=== PATIENT | female | born 1985 | race Caucasian/White ===

== ENCOUNTER 2016-10-22 18:09 | Emergency (ER) | payer OTHER ==
[~2016-10-22] VITALS: Ht 162.6 cm; Wt 89.5 kg
[~2016-10-22 18:09] MED LIST: ACET500C5 PO; CEPH-443 PO; DOXY100T20 PO; HYDR-3498 PO; IBUP-1542 PO; PRED20TA PO
[2016-10-22 18:55] VITALS: Ht 162.6 cm; Wt 89.5 kg
[2016-10-22] MEDS ORDERED: FAMOTIDINE 20 MG INJ IV STA (20:24)
[2016-10-22] MEDS ORDERED: LIDOCAINE/MYLANTA 40 ML BTL PO STA (20:24)
[2016-10-22] MEDS ORDERED: BELLADONNA/PHENOBARBITAL TAB PO STA (20:24)
[2016-10-22 20:48] LABS: BASOPHIL # 0.1 10^3/ul (0.0-0.1); BASOPHILS % 0.5 % (0.0-2.0); EOSINOPHILS # 0.3 10^3/ul (0.0-0.5); HEMATOCRIT 41.2 % (37.0-47.0); HEMOGLOBIN 14.4 g/dl (12.0-16.0); LYMPHOCYTES % 26.7 % (15.0-51.0); MEAN CORPUSCULAR HEMOGLOBIN 30.3 pg (29.0-33.0); MEAN CORPUSCULAR VOLUME 86.6 fl (82.0-101.0); MEAN PLATELET VOLUME 10.3 fl (7.4-10.4); MONOCYTE # 0.5 10^3/ul (0.3-0.9); MONOCYTES % 4.6 % (0.0-11.0); NEUTROPHIL # 7.3 10^3/ul (1.6-7.5); NEUTROPHILS % 65.2 % (39.0-77.0); PLATELET COUNT 209 10^3/UL (140-440); RED BLOOD COUNT 4.76 10^6/ul (4.20-5.40); RED CELL DISTRIBUTION WIDTH 12.5 % (11.5-14.5); UNCORRECTED WBC 11.2 10^3/ul (4.8-10.8); WHITE BLOOD COUNT 11.2 10^3/ul (4.8-10.8)
--- NOTE | 2016-10-22 20:49 | ERD ---
ER Documentation Chief Complaint Date/Time DATE: 10/22/16 TIME: 20:45 Chief Complaint periumbilical pain x 3 days, dizzy today HPI This is a 31-year-old female presents to the ER with periumbilical pain that started 3 days ago. Patient states that pain is described as burning pain has been intermittent. Patient tried Tylenol and it helps temporarily. She denies any nausea vomiting or diarrhea. Patient's last normal menstrual period was in February, however they took out her IUD and since then she has not had a menstrual period. Patient denies any urinary frequency or dysuria. She admits to chills however denies fevers. In regards to patient's dizziness patient had one episode of dizziness today. Dizziness is described as a spinning sensation that quickly resolved. She denies any head trauma or loss of consciousness. She denies any chest pain shortness of breath. ROS 12 point review of systems was done, all negative except per HPI. Medications Home Meds Active Scripts Hydrocodone/Acetaminophen ([place] 5-325 Tablet) 1 Each Tablet, 1 TAB PO Q6H Y for PAIN, #20 TAB Prov:LILLIAM WALTON 10/22/16 Famotidine* (Pepcid*) 20 Mg Tablet, 20 MG PO BID for 7 Days, TAB Prov:LILLIAM WALTON 10/22/16 Acetaminophen* (Tylophen*) 500 Mg Capsule, 1 CAP PO Q6H Y for PAIN AND OR ELEVATED TEMP, #14 CAP Prov:DUNG JUAREZ MD 02/05/16 Hydrocodone Bit-Acetaminophen* ([place]*) 5-325 Mg Tab, 1 TAB PO Q6 Y for PAIN, # 7 TAB Prov:TIKA HEREDIA 05/25/15 Doxycycline Hyclate* (Doxycycline Hyclate*) 100 Mg Tablet.dr, 100 MG PO BID for 14 Days, TAB Prov:TIKA HEREDIA 05/25/15 Prednisone* (Prednisone*) 20 Mg Tab, 40 MG PO DAILY for 4 Days, TAB Prov:DUNG JUAREZ MD 04/11/15 Ibuprofen* (Motrin*) 600 Mg Tab, 600 MG PO Q6, #14 TAB Prov:DUNG JUAREZ MD 04/11/15 Cephalexin* (Keflex*) 500 Mg Capsule, 500 MG PO QID for 7 Days, CAP Prov:DUNG JUAREZ MD 04/11/15 Allergies Allergies: Coded Allergies: No Known Drug Allergy (Verified Allergy, Unknown, 12/26/14) PMhx/Soc History of Surgery: Yes (Cholecystectomy;Left Tubal cyst removal ) Anesthesia Reaction: No Hx Neurological Disorder: No Hx Respiratory Disorders: No Hx Cardiac Disorders: No Hx Psychiatric Problems: No Hx Miscellaneous Medical Probl: No (iud removal 03/06/16) Hx Alcohol Use: No Hx Substance Use: No Hx Tobacco Use: No Smoking Status: Never smoker Physical Exam Vitals Vital Signs Date Time Temp Pulse Resp B/P Pulse Ox O2 Delivery O2 Flow Rate FiO2 10/22/16 18:55 98.3 79 20 132/63 99 Physical Exam GENERAL: The patient is well developed and appropriate for usual state of health , in no apparent distress. HEENT: Atraumatic. CHEST: Clear to auscultation bilaterally. There are no rales, wheezes or rhonchi. HEART: Regular rate and rhythm. No murmurs, clicks, rubs or gallops. ABDOMEN: + epigastric pain. Soft, nontender and nondistended. Good bowel sounds. No rebound or guarding. No gross peritonitis. No gross organomegaly or masses. No Schultz sign or McBurney point tenderness. BACK: No midline or flank tenderness. NEURO: Alert and oriented. SKIN: The skin is warm and dry. Result Diagram: 10/22/16203810/22/162038 Results 24 hrs Laboratory Tests Test 10/22/16 20:30 10/22/16 20:39 Urine Bacteria MODERATE Urine Bilirubin NEGATIVE Urine Clarity CLEAR Urine Color LT. YELLOW Urine Glucose NEGATIVE% Urine Hemoglobin NEGATIVE Urine Ketones NEGATIVE Urine Leukocyte Esterase TRACE Urine Microscopic RBC NONE SEEN/HPF Urine Microscopic WBC 2-5/HPF Urine Nitrite NEGATIVE Urine Specific [place] 1.015 Urine Squamous Epithelial Cells MODERATE Urine Total Protein NEGATIVE Urine Urobilinogen 0.2 E.U./dL Urine pH 7.5 Alanine Aminotransferase (ALT/SGPT) 68IU/L Albumin 4.3g/dl Albumin/Globulin Ratio 1.30 Alkaline Phosphatase 79IU/L Anion Gap 19 Aspartate Amino Transf (AST/SGOT) 33IU/L Basophils # 0.110^3/ul Basophils % 0.5% Blood Urea Nitrogen 13mg/dl Calcium Level 9.2mg/dl Carbon Dioxide Level 28mmol/L Chloride Level 101mmol/L Creatinine 0.69mg/dl Direct Bilirubin 0.00mg/dl Eosinophils # 0.310^3/ul Eosinophils % 3.0% Globulin 3.30g/dl Glucose Level 99mg/dl Hematocrit 41.2% Hemoglobin 14.4g/dl Indirect Bilirubin 0.0mg/dl Lipase 109U/L Lymphocytes # 3.010^3/ul Lymphocytes % 26.7% Mean Corpuscular Hemoglobin 30.3pg Mean Corpuscular Hemoglobin Concent 35.0g/dl Mean Corpuscular Volume 86.6fl Mean Platelet Volume 10.3fl Monocytes # 0.510^3/ul Monocytes % 4.6% Neutrophils # 7.310^3/ul Neutrophils % 65.2% Nucleated Red Blood Cells # 0.010^3/ul Nucleated Red Blood Cells % 0.0/100WBC Platelet Count 90883^3/UL Potassium Level 3.8mmol/L Red Blood Count 4.7610^6/ul Red Cell Distribution Width 12.5% Sodium Level 144mmol/L Total Bilirubin 0.0mg/dl Total Protein 7.6g/dl White Blood Count 11.210^3/ul Current Medications Medications (Trade) Dose Ordered Sig/Mariann Route PRN Reason Start Time Stop Time Status Last Admin Dose Admin Famotidine (Pepcid Iv) 20 mg ONCE STAT IV 10/22/16 20:24 10/22/16 20:26 DC 10/22/16 20:36 Miscellaneous Medication (Gi Cocktail (2)) 40 ml ONCE STAT PO 10/22/16 20:24 10/22/16 20:26 DC 10/22/16 20:34 Belladonna/ Phenobarbital () 2 tab ONCE STAT PO 10/22/16 20:24 10/22/16 20:26 DC 10/22/16 20:33 Procedures/MDM Differential diagnosis includes but is not limited to; indigestion, GERD, constipation, appendicitis, diverticulitis, peptic ulcer disease, AAA. This is a 31-year-old female presents to the ER with periumbilical pain that started 3 days ago. At this time patient's abdominal exam is completely benign, she is afebrile and well-appearing. I doubt acute abdomen. Diagnostic studies were all normal. She felt significantly better with medications given in the ER. Patient was sent home with famotidine and with [place]. Patient is to follow-up with her primary care doctor within 1-2 days or return to ER sooner if symptoms worsen. My medical decision making was shared with the patient she understands and agrees with plan Departure Diagnosis: Primary Impression: Abdominal pain Condition: Stable LILLIAM AWLTON Oct 22, 2016 20:49
[2016-10-22 20:52] LABS: ADD UMIC YES; URINE BILIRUBIN (Dip) NEGATIVE (NEGATIVE); URINE BLOOD (Dip) NEGATIVE (NEGATIVE); URINE COLOR LT. YELLOW (YELLOW); URINE GLUCOSE (Dip) NEGATIVE (NEGATIVE); URINE KETONES (Dip) NEGATIVE (NEGATIVE); URINE LEUKOCYTE ESTERASE (Dip) TRACE (NEGATIVE); URINE NITRITE (Dip) NEGATIVE (NEGATIVE); URINE TOTAL PROTEIN (Dip) NEGATIVE (NEGATIVE); URINE UROBILINOGEN (Dip) 0.2 E.U./dL (0.1-1.0)
[2016-10-22 20:55] LABS: ALBUMIN 4.3 g/dl (3.3-4.9); CONDITION 1
[2016-10-22 20:56] LABS: POTASSIUM 3.8 mmol/L (3.5-5.1)
[2016-10-22 20:58] LABS: ALBUMIN/GLOBULIN RATIO 1.3; CREATININE 0.69 mg/dl (0.44-1.00); TOTAL PROTEIN 7.6 g/dl (6.1-8.1)
[2016-10-22 20:59] LABS: CALCIUM 9.2 mg/dl (8.4-10.2)
[2016-10-22 21:11] LABS: SQUAMOUS EPITHELIAL CELL,UR MODERATE; URINE RBCS NONE SEEN /HPF (0)
[2016-10-22 21:12] LABS: BACTERIA,URINE MODERATE
--- NOTE | 2016-10-22 22:08 | RADRPT ---
PROCEDURE: CT Abdomen and Pelvis without contrast CLINICAL INDICATION: Abdominal pain, periumbilical. History of cholecystectomy TECHNIQUE: Transaxial images were obtained through the abdomen and pelvis on a multi-slice scanner without the intravenous contrast administration. No oral contrast had previously been given. Sagit chloe and coronal re-formations were subsequently reconstructed. One or more of the following dose reduction techniques were used: - Automated exposure control. - Adjustment of the mA and/or kV according to patient size. - Use of iterative reconstruction technique. Radiation dose: CTDIvol = 18.56 mGy; DLP = 1055.75 mGy-cm. COMPARISON: Previous CT with contrast and 05/25/2015 FINDINGS: Lung bases: The visualized lung bases appear unremarkable. Liver: Normal in size and in attenuation. There is no focal lesion. Gallbladder: Surgical anna are seen in the gallbladder fossa. Bile ducts: The intra and extrahepatic bile ducts are normal in caliber. Pancreas: Appears normal with no mass or inflammation evident. Spleen: Normal in size with no focal lesion. Adrenals: Normal with no mass identified. Kidneys, ureters and bladder: The kidneys are normal in size and there is no mass, pathological calc ification, or hydronephrosis evident. There is no perinephric stranding. The ureters are normal in c aliber and no ureteroliths are identified. The bladder appears unremarkable. Reproductive organs: The uterus deviates slightly to the left of midline. A 1.[address] is evident. Stomach and bowel: The bowel appears unremarkable with no evidence of bowel obstruction or inflammat ion. The stomach appears unremarkable. Appendix: A normal-appearing vermiform appendix is evident. Peritoneum: No free intraperitoneal fluid or air is identified. Aorta: Normal in caliber with no aneurysmal dilatation. IVC: Unremarkable. Lymph nodes: No pathologically enlarged nodes are identified. Osseous structures: The osseous elements appear intact. IMPRESSION: 1. Again there is evidence of a previous cholecystectomy. There is no bile duct dilatation and the pancreas appears unremarkable. 2. There is no evidence of bowel obstruction or inflammation and a normal-appearing vermiform appen joaquín is again evident. 3. No evidence of urinary outflow obstruction or ureterolithiasis. 4. The IUD is no longer seen within the uterus and there is a 1.5 cm right adnexal cyst evident. 5. Otherwise, stable and unremarkable CT scan of the abdomen and pelvis without contrast. Claudia Elias Physician Date Time Electronically viewed and signed by Claudia Elias Physician on 10/22/2016 22:08 /
[2016-10-22] MEDS ORDERED: FAMO-18 PO (22:16)
[2016-10-22] MEDS ORDERED: HYDR-906 PO (22:16)
[2016-10-22 22:38] VITALS: BP 123/64; PULSE 82; RESP 16; TEMP 98.6
== END 2016-10-22 22:39 | disposition home or self-care (01) ==
LOC: FTE 18:09
DX: R10.13 Epigastric pain (principal)
CPT/HCPCS: 36415; 74176; 80053; 81001; 83690; 85025; 96374; Z7502; Z7610; 81003

== ENCOUNTER 2017-01-25 18:13 | Emergency (ER) | payer OTHER ==
[~2017-01-25] VITALS: Ht 157.5 cm; Wt 86.3 kg
[~2017-01-25 18:13] MED LIST changes: +FAMO-18 PO; +HYDR-906 PO
[2017-01-25 18:57] VITALS: Ht 157.5 cm; Wt 86.3 kg
[2017-01-25] MEDS ORDERED: ONDANSETRON (ODT) 4 MG TAB ODT STA (21:37)
[2017-01-25 21:48] LABS: URINE BLOOD (Dip) POC Trace-intact (NEGATIVE)
[2017-01-25] MEDS ORDERED: ACET/BUTAL/CAFF TAB PO ONE (22:00)
[2017-01-25] MEDS ORDERED: METOCLOPRAMIDE 10 MG INJ IV ONE (23:00)
[2017-01-25] MEDS ORDERED: SOD CHLORIDE 0.9% 1,000 ML IV ONE (23:00)
[2017-01-25] MEDS ORDERED: DIPHENHYDRAMINE 50 MG INJ IV ONE (23:00)
[2017-01-25] MEDS ORDERED: FIORICET PO (23:23)
--- NOTE | 2017-01-26 00:09 | ERD ---
ER Documentation Chief Complaint Date/Time DATE: 01/26/17 TIME: 00:06 Chief Complaint BROUSSARD OFF AND ON X1 WEEK HPI 31-year-old female patient with a past medical history of recurrent headaches presents to the ED complaining of the same headache that she has had in the last few years. States that she has some photophobia but denies any blurred vision or diplopia or vision loss. States that she has been taking Ibuprofen and Tylenol without relief of her symptoms. Denies any fever, chills, dizziness , numbness and tingling. Patient states that she has followed up with a neurologist 1 year ago and obtain an MRI which was negative for any acute findings. Patient has also had [address] scans with any acute findings. Denies any nausea, vomiting, weakness, chest pain, shortness of breath. ROS All systems reviewed and are negative except as per history of present illness. Medications Home Meds Active Scripts Acetamin/Butalbital/Caffeine* (Fioricet*) [id number] Tab, 1 TAB PO Q6H Y for PAIN, #30 TAB Prov:AYAH HERNANDEZ PA-C 01/25/17 Hydrocodone/Acetaminophen ([place] 5-325 Tablet) 1 Each Tablet, 1 TAB PO Q6H Y for PAIN, #20 TAB Prov:LILLIAM WALTON 10/22/16 Famotidine* (Pepcid*) 20 Mg Tablet, 20 MG PO BID for 7 Days, TAB Prov:LILLIAM WALTON 10/22/16 Acetaminophen* (Tylophen*) 500 Mg Capsule, 1 CAP PO Q6H Y for PAIN AND OR ELEVATED TEMP, #14 CAP Prov:DUNG JUAREZ MD 02/05/16 Hydrocodone Bit-Acetaminophen* ([place]*) 5-325 Mg Tab, 1 TAB PO Q6 Y for PAIN, # 7 TAB Prov:TIKA HEREDIA 05/25/15 Doxycycline Hyclate* (Doxycycline Hyclate*) 100 Mg Tablet.dr, 100 MG PO BID for 14 Days, TAB Prov:TIKA HEREDIA 05/25/15 Prednisone* (Prednisone*) 20 Mg Tab, 40 MG PO DAILY for 4 Days, TAB Prov:DUNG JUAREZ MD 04/11/15 Ibuprofen* (Motrin*) 600 Mg Tab, 600 MG PO Q6, #14 TAB Prov:DUNG JUAREZ MD 04/11/15 Cephalexin* (Keflex*) 500 Mg Capsule, 500 MG PO QID for 7 Days, CAP Prov:DUNG JUAREZ MD 04/11/15 Allergies Allergies: Coded Allergies: No Known Drug Allergy (Verified Allergy, Unknown, 12/26/14) PMhx/Soc History of Surgery: Yes (Cholecystectomy;Left Tubal cyst removal ) Anesthesia Reaction: No Hx Neurological Disorder: No Hx Respiratory Disorders: No Hx Cardiac Disorders: No Hx Psychiatric Problems: No Hx Miscellaneous Medical Probl: No (iud removal 03/06/16) Hx Alcohol Use: No Hx Substance Use: No Hx Tobacco Use: No Smoking Status: Never smoker Physical Exam Vitals Vital Signs Date Time Temp Pulse Resp B/P Pulse Ox O2 Delivery O2 Flow Rate FiO2 01/25/17 18:57 98.3 70 20 119/76 99 Physical Exam Const: [id number], well-nourished. In no acute distress. Head: Atraumatic, normocephalic Eyes: Normal Conjunctiva without injection. No purulent discharge. PERRLA. EOMI ENT: Normal external ear. Ear canal without erythema. Tympanic membrane pearly girard without effusion or bulging. Nasal canal clear with normal turbinates. Moist oropharynx without tonsillar exudates. Non-erythematous pharynx. Uvula midline. No drooling. No trismus. Neck: No cervical midline tenderness. Full range of motion. No meningismus. No cervical lymphadenopathy. No JVD. Resp: Clear to auscultation bilaterally. No wheezing, rhonchi, rales, or crackles. No accessory muscle use. No retractions. Cardio: Regular rate and rhythm. No murmurs, rubs or gallops. Skin: Normal skin turgor. No petechiae or rashes Back: No midline tenderness. No CVA tenderness. Ext: No cyanosis, or edema. Distal pulses intact bilaterally. Neur: Awake and alert. Normal gait. Normal coordination. Cranial Nerves II- VII intact. Normal finger to nose. Muscle strength 5/5. Sensation intact. Psych: Normal Mood and Affect Results 24 hrs Laboratory Tests Test 01/25/17 21:49 Bedside Urine pH (LAB) 6.0 Bedside Urine Protein (LAB) Negative Bedside Urine Glucose (UA) Negative Bedside Urine Ketones (LAB) Negative Bedside Urine Blood Trace-intact Bedside Urine Nitrite (LAB) Negative Bedside Urine Leukocyte Esterase (L Trace Current Medications Medications (Trade) Dose Ordered Sig/Mariann Route PRN Reason Start Time Stop Time Status Last Admin Dose Admin Acetaminophen/ Butalbital/ Caffeine (Fioricet) 1 tab ONCE ONCE PO 01/25/17 22:00 01/25/17 22:01 DC 01/25/17 22:02 Ondansetron HCl (Zofran Odt) 4 mg ONCE STAT ODT 01/25/17 21:37 01/25/17 21:39 DC 01/25/17 21:54 Metoclopramide HCl (Reglan) 10 mg ONCE ONCE IV 01/25/17 23:00 01/25/17 23:01 DC 01/25/17 22:51 Diphenhydramine HCl 25 mg 25 mg ONCE ONCE IV 01/25/17 23:00 01/25/17 23:01 DC 01/25/17 22:51 Sodium Chloride (NS) 1,000 ml @ 1,000 mls/hr Q1H ONCE IV 01/25/17 23:00 01/25/17 23:59 DC 01/25/17 22:51 Procedures/MDM This is a 31-year-old female patient with a past medical history of headaches presents to the ED complaining of the same headache that is not resolved with ibuprofen and Tylenol. Patient is afebrile and nontoxic-appearing. Negative Kernig's and persistently sign. Low suspicion for meningitis. Since patient's pain is the same, she was treated for her pain. Patient is neurologically intact. Patient was treated with Fioricet and Zofran with slight improvement of her symptoms. Therefore patient was given 1 L of normal saline, IV Reglan and IV Benadryl with relief of her pain. Patient symptoms could likely be due to tension headache versus migraine. There is low suspicion for intracranial bleed, cluster headache, malignancy, subarachnoid hemorrhage, meningitis, TIA, stroke, seizures, epidural hematoma, subdural hematoma, brain aneurysms, carotid dissection or other emergent conditions. Discharge medications: Fioricet Follow up with primary care physician in 1-2 days. Instructed patient to return to the ED sooner for any worsening symptoms. Patient's questions were answered. Patient understood and agreed with discharge plan. Patient discharged stable. Departure Diagnosis: Primary Impression: Headache Headache type: unspecified Headache chronicity pattern: unspecified pattern Intractability: not intractable Qualified Code: R51 - Nonintractable headache, unspecified chronicity pattern, unspecified headache type Condition: Stable Patient Instructions: Headache, Unspecified Referrals: FRANC VELEZ (PCP) TIFFANY KAPADIA MD, IRA CHUGH,GERMAINE BRISENO,LASHELL FAN,KATIA LOPEZ,GRACE FERRER,CASEY CASTANEDA,KIMBERLY HAJI,CHIKI JOSHUA,ELMO Ibarra MD [facility] YOU HAVE RECEIVED A MEDICAL SCREENING EXAM AND THE RESULTS INDICATE THAT YOU DO NOT HAVE A CONDITION THAT REQUIRES URGENT TREATMENT IN THE EMERGENCY DEPARTMENT. FURTHER EVALUATION AND TREATMENT OF YOUR CONDITION CAN WAIT UNTIL YOU ARE SEEN IN YOUR DOCTORS OFFICE WITHIN THE NEXT 1-2 DAYS. IT IS YOUR RESPONSIBILITY TO MAKE AN APPOINTMENT FOR FOLOW-UP CARE. IF YOU HAVE A PRIMARY DOCTOR --you should call your primary doctor and schedule an appointment IF YOU DO NOT HAVE A PRIMARY DOCTOR YOU CAN CALL OUR PHYSICIAN REFERRAL HOTLINE AT IF YOU CAN NOT AFFORD TO SEE A PHYSICIAN YOU CAN CHOSE FROM THE FOLLOWING [facility] [address] [facility]. [facility] [address] [facility]. [facility] [address] [facility] [address] [facility] [address] [facility]. [facility] [address] [facility] YOU HAVE RECEIVED A MEDICAL SCREENING EXAM AND THE RESULTS INDICATE THAT YOU DO NOT HAVE A CONDITION THAT REQUIRES URGENT TREATMENT IN THE EMERGENCY DEPARTMENT. FURTHER EVALUATION AND TREATMENT OF YOUR CONDITION CAN WAIT UNTIL YOU ARE SEEN IN YOUR DOCTORS OFFICE WITHIN THE NEXT 1-2 DAYS. IT IS YOUR RESPONSIBILITY TO MAKE AN APPOINTMENT FOR FOLOW-UP CARE. IF YOU HAVE A PRIMARY DOCTOR --you should call your primary doctor and schedule and appointment IF YOU DO NOT HAVE A PRIMARY DOCTOR YOU CAN CALL OUR PHYSICIAN REFERRAL HOTLINE AT . IF YOU CAN NOT AFFORD TO SEE A PHYSICIAN YOU CAN CHOSE FROM THE FOLLOWING [facility] INSTITUTIONS: [facility] [address] [place] [address] [facility] [address] [place] [address] [facility] [address] [place] [address] [facility] URGENT CARE/SPECIALTIES Additional Instructions: Call your primary care doctor TOMORROW for an appointment during the next 1-2 days for a referral to a neurologist.See the doctor sooner or return here if your condition worsens before your appointment time. You have been given a medicine which may cause drowsiness.DO NOT DRIVE OR OPERATE DANGEROUS MACHINERY while taking this medicine! AYAH HERNANDEZ PA-C January 26, 2017 00:09 AYAH HERNANDEZ PA-C January 26, 2017 00:09
[2017-01-26 00:20] VITALS: BP 126/80; PULSE 87; RESP 20; TEMP 97.3
== END 2017-01-26 00:27 | disposition home or self-care (01) ==
LOC: FTE 18:13
DX: R51 Headache (principal)
CPT/HCPCS: 81003; J1200; J2765; J7030; Z7610; 96374; 96375

== ENCOUNTER 2017-04-22 17:21 | Emergency (ER) | payer OTHER ==
[~2017-04-22] VITALS: Ht 160 cm; Wt 85.0 kg
[~2017-04-22 17:21] MED LIST changes: -FAMO-18 PO; +FAMO-96 PO; +FIORICET PO
[2017-04-22 17:23] VITALS: Ht 160 cm; Wt 85.0 kg
[2017-04-22] MEDS ORDERED: ONDANSETRON (ODT) 4 MG TAB ODT STA (18:51)
[2017-04-22] MEDS ORDERED: ACET/BUTAL/CAFF TAB PO ONE (19:00)
[2017-04-22] MEDS ORDERED: ONDA4TAB14 PO (21:13)
[2017-04-22] MEDS ORDERED: FIORICET PO (21:13)
[2017-04-22 21:19] VITALS: BP 120/78; PULSE 70; RESP 18
--- NOTE | 2017-04-22 22:29 | ERD ---
ER Documentation Chief Complaint Date/Time DATE: 04/22/17 TIME: 22:26 Chief Complaint HEADACHE WITH VOMITING HPI 32-year-old female patient with no significant past medical history presents the ED complaining of a headache that started with a few episodes of nonbilious nonbloody vomiting. Reports that her last menses was 1 week ago. Describes the pain as a pressure sensation. States that she mainly feels in the temporal region and posterior head region. Denies any head or neck injuries. Denies any seizures, facial pain, diplopia, photophobia, phonophobia, vision loss, blurred vision. Reports that this feels like the same headache that she experienced when she was seen here previously in January. ROS All systems reviewed and are negative except as per history of present illness. Medications Home Meds Active Scripts Ondansetron (Ondansetron Odt) 4 Mg Tab.rapdis, 4 MG PO Q6H Y for NAUSEA AND/OR VOMITING, #10 TAB Prov:AYAH HERNANDEZ PA-C 04/22/17 Acetamin/Butalbital/Caffeine* (Fioricet*) [id number] Tab, 1 TAB PO Q6H Y for PAIN, #30 TAB Prov:AYAH HERNANDEZ PA-C 04/22/17 Acetamin/Butalbital/Caffeine* (Fioricet*) [id number] Tab, 1 TAB PO Q6H Y for PAIN, #30 TAB Prov:AYAH HERNANDEZ PA-C 01/25/17 Hydrocodone/Acetaminophen ([place] 5-325 Tablet) 1 Each Tablet, 1 TAB PO Q6H Y for PAIN, #20 TAB Prov:LILLIAM WALTON 10/22/16 Famotidine* (Pepcid*) 20 Mg Tablet, 20 MG PO BID for 7 Days, TAB Prov:LILLIAM WALTON C 10/22/16 Acetaminophen* (Tylophen*) 500 Mg Capsule, 1 CAP PO Q6H Y for PAIN AND OR ELEVATED TEMP, #14 CAP Prov:DUNG JUAREZ MD 02/05/16 Hydrocodone Bit-Acetaminophen* ([place]*) 5-325 Mg Tab, 1 TAB PO Q6 Y for PAIN, # 7 TAB Prov:TIKA HEREDIA 05/25/15 Doxycycline Hyclate* (Doxycycline Hyclate*) 100 Mg Tablet.dr, 100 MG PO BID for 14 Days, TAB Prov:YANTIKA M. 05/25/15 Prednisone* (Prednisone*) 20 Mg Tab, 40 MG PO DAILY for 4 Days, TAB Prov:DUNG JUAREZ MD 04/11/15 Ibuprofen* (Motrin*) 600 Mg Tab, 600 MG PO Q6, #14 TAB Prov:DUNG JUAREZ MD 04/11/15 Cephalexin* (Keflex*) 500 Mg Capsule, 500 MG PO QID for 7 Days, CAP Prov:DUNG JUAREZ MD 04/11/15 Allergies Allergies: Coded Allergies: No Known Drug Allergy (Verified Allergy, Unknown, 12/26/14) PMhx/Soc History of Surgery: Yes (Cholecystectomy;Left Tubal cyst removal ) Anesthesia Reaction: No Hx Neurological Disorder: No Hx Respiratory Disorders: No Hx Cardiac Disorders: No Hx Psychiatric Problems: No Hx Miscellaneous Medical Probl: No (iud removal 03/06/16) Hx Alcohol Use: No Hx Substance Use: No Hx Tobacco Use: No Smoking Status: Never smoker Physical Exam Vitals Vital Signs Date Time Temp Pulse Resp B/P Pulse Ox O2 Delivery O2 Flow Rate FiO2 04/22/17 21:19 70 18 120/78 99 Room Air 04/22/17 17:23 98.3 86 18 120/72 98 Physical Exam Const: [id number], well-nourished. In no acute distress. Head: Atraumatic, normocephalic Eyes: Normal Conjunctiva without injection. No purulent discharge. PERRLA. EOMI ENT: Normal external ear. Ear canal without erythema. Tympanic membrane pearly girard without effusion or bulging. Nasal canal clear with normal turbinates. Moist oropharynx without tonsillar exudates. Non-erythematous pharynx. Uvula midline. No drooling. No trismus. Neck: No cervical midline tenderness. Full range of motion. No meningismus. No cervical lymphadenopathy. No JVD. Resp: Clear to auscultation bilaterally. No wheezing, rhonchi, rales, or crackles. No accessory muscle use. No retractions. Cardio: Regular rate and rhythm. No murmurs, rubs or gallops. Abd: Soft, non tender, non distended. Normal bowel sounds. No palpable masses. No rebound tenderness. No guarding. Negative McBurney's Point. Negative Schultz's Sign. Skin: Normal skin turgor. No petechiae or rashes Back: No midline tenderness. No CVA tenderness. Ext: No cyanosis, or edema. Distal pulses intact bilaterally. Neur: Awake and alert. Normal gait. Normal coordination. Cranial Nerves II- VII intact. Normal finger to nose. Muscle strength 5/5. Sensation intact. Psych: Normal Mood and Affect Results 24 hrs Current Medications Medications (Trade) Dose Ordered Sig/Mariann Route PRN Reason Start Time Stop Time Status Last Admin Dose Admin Acetaminophen/ Butalbital/ Caffeine (Fioricet) 1 tab ONCE ONCE PO 04/22/17 19:00 04/22/17 19:01 DC 04/22/17 19:58 Ondansetron HCl (Zofran Odt) 4 mg ONCE STAT ODT 04/22/17 18:51 04/22/17 18:52 DC 04/22/17 19:50 Procedures/MDM This is a 32-year-old female patient with no significant past medical history presents the ED complaining of headache associated with vomiting. Patient is afebrile and nontoxic-appearing. Patient has normal vital signs. Patient reports that this is the same type of pain that she has been experiencing. Patient likely has a tension versus migraine headache. Patient has seen her primary care physician for the same headache. Reports that she ran out of her medication for Fioricet. Patient was treated here in the ED with Fioricet and Zofran with improvement of her symptoms. The suspicion for intracranial bleed, subarachnoid hemorrhage, meningitis, TIA, stroke, seizures, epidural hematoma, subdural hematoma, or other emergent conditions. Discharge medications: Fioricet, Zofran Follow up with primary care physician in 1-2 days. Instructed patient to return to the ED sooner for any worsening symptoms. Patient's questions were answered. Patient understood and agreed with discharge plan. Patient discharged stable. Departure Diagnosis: Primary Impression: Headache Headache type: unspecified Headache chronicity pattern: unspecified pattern Intractability: not intractable Qualified Code: R51 - Nonintractable headache, unspecified chronicity pattern, unspecified headache type Condition: Stable Patient Instructions: Self-Care for Headaches, Stress Relief: Relaxation, Stress Relief: A Positive Lifestyle Referrals: [facility] VELE[facility] (PCP) [facility] YOU HAVE RECEIVED A MEDICAL SCREENING EXAM AND THE RESULTS INDICATE THAT YOU DO NOT HAVE A CONDITION THAT REQUIRES URGENT TREATMENT IN THE EMERGENCY DEPARTMENT. FURTHER EVALUATION AND TREATMENT OF YOUR CONDITION CAN WAIT UNTIL YOU ARE SEEN IN YOUR DOCTORS OFFICE WITHIN THE NEXT 1-2 DAYS. IT IS YOUR RESPONSIBILITY TO MAKE AN APPOINTMENT FOR FOLOW-UP CARE. IF YOU HAVE A PRIMARY DOCTOR --you should call your primary doctor and schedule an appointment IF YOU DO NOT HAVE A PRIMARY DOCTOR YOU CAN CALL OUR PHYSICIAN REFERRAL HOTLINE AT IF YOU CAN NOT AFFORD TO SEE A PHYSICIAN YOU CAN CHOSE FROM THE FOLLOWING [facility] [address] [facility]. [facility] [address] [facility] [facility] [address] [facility] [address] [facility] [address] [facility]. [facility] [address] [facility]. [facility] YOU HAVE RECEIVED A MEDICAL SCREENING EXAM AND THE RESULTS INDICATE THAT YOU DO NOT HAVE A CONDITION THAT REQUIRES URGENT TREATMENT IN THE EMERGENCY DEPARTMENT. FURTHER EVALUATION AND TREATMENT OF YOUR CONDITION CAN WAIT UNTIL YOU ARE SEEN IN YOUR DOCTORS OFFICE WITHIN THE NEXT 1-2 DAYS. IT IS YOUR RESPONSIBILITY TO MAKE AN APPOINTMENT FOR FOLOW-UP CARE. IF YOU HAVE A PRIMARY DOCTOR --you should call your primary doctor and schedule and appointment IF YOU DO NOT HAVE A PRIMARY DOCTOR YOU CAN CALL OUR PHYSICIAN REFERRAL HOTLINE AT . IF YOU CAN NOT AFFORD TO SEE A PHYSICIAN YOU CAN CHOSE FROM THE FOLLOWING [facility]: [facility] [address] [place] [address] [facility] [address] [place] [address] [facility] [address] [place] [address] [facility] URGENT CARE/SPECIALTIES Additional Instructions: Call your primary care doctor TOMORROW for an appointment during the next 3 days.See the doctor sooner or return here if your condition worsens before your appointment time - fever, chills, neck stiffness, worsening headache, vomiting that does not improve with medicine, etc. AYAH HERNANDEZ PA-C Apr 22, 2017 22:29
== END 2017-04-22 21:21 | disposition home or self-care (01) ==
LOC: FTE 17:21
DX: R51 Headache (principal); R11.10 Vomiting, unspecified
CPT/HCPCS: Z7502; Z7610; 99284

== ENCOUNTER 2017-07-19 15:21 | Emergency (ER) | payer OTHER ==
[~2017-07-19] VITALS: Ht 170.2 cm; Wt 84.5 kg
[~2017-07-19 15:21] MED LIST changes: +ONDA4TAB14 PO
[2017-07-19 15:24] VITALS: Ht 170.2 cm; Wt 84.5 kg
[2017-07-19] MEDS ORDERED: ALBUTEROL 0.083% (NEB) 2.5 MG/3 ML AMP HHN STA (16:16)
[2017-07-19] MEDS ORDERED: BENZ100C70 PO (16:35)
[2017-07-19] MEDS ORDERED: SODI126M NASAL (16:35)
[2017-07-19] MEDS ORDERED: ALBU18HF INHALATION (16:35)
[2017-07-19] MEDS ORDERED: FLUT9.9S NASAL (16:35)
--- NOTE | 2017-07-19 16:38 | ERD ---
ER Documentation Chief Complaint Chief Complaint COUGH X1MTH, RIGHT EARACHE X4 DAYS HPI 32-year-old female complaining of cough 1 month. Cough is nonproductive, throughout the day but worse at night. Patient reports fever at home, T-max 102 2 nights ago. She took Tylenol at home for fever. Patient feels she has short of breath during cough. Denies shortness of breath at this time. Denies abdominal pain, vomiting, or diarrhea. Patient also reports right ear pain 4 days. She has been using Q-tips in her right ear more frequently than usual the last few days prior to the onset of the ear pain. Denies decreased hearing. Denies ear drainage. ROS All systems reviewed and are negative except as per history of present illness. Medications Home Meds Active Scripts Neomycin/Polymyxin/Hydrocort* (Cortisporin* Otic) 10 Ml Susp, 4 DROP RIGHT EAR QID for 7 Days, EA Prov:DAVID ROBLES NP 07/19/17 Benzonatate* (Tessalon Perle*) 100 Mg Capsule, 100 MG PO Q8H Y for COUGH, #30 CAP Prov:DAVID ROBLES NP 07/19/17 Albuterol Sulfate* (Ventolin HFA*) 18 Gm Hfa.aer.ad, 2 PUFF INHALATION Q4H, #1 INHALER Prov:DAVID ROBLES NP 07/19/17 Fluticasone Propionate (Flonase Allergy Relief) 9.9 Ml [place].susp, 1 SPRAY NASAL DAILY, #1 BOTTLE TO EACH NOSTRIL Prov:DAVID ROBLES NP 07/19/17 Sodium Chloride (Saline Nasal Mist) 126 Ml Mist, 2 SPRAY NASAL Q2H Y for NASAL CONGESTION, #1 BOTTLE Prov:DAVID ROBLES NP 07/19/17 Ondansetron (Ondansetron Odt) 4 Mg Tab.rapdis, 4 MG PO Q6H Y for NAUSEA AND/OR VOMITING, #10 TAB Prov:AYAH HERNANDEZ PA-C 04/22/17 Acetamin/Butalbital/Caffeine* (Fioricet*) [id number] Tab, 1 TAB PO Q6H Y for PAIN, #30 TAB Prov:AYAH HERNANDEZ PA-C 04/22/17 Acetamin/Butalbital/Caffeine* (Fioricet*) [id number] Tab, 1 TAB PO Q6H Y for PAIN, #30 TAB Prov:AYAH HERNANDEZ PA-C 01/25/17 Hydrocodone/Acetaminophen ([place] 5-325 Tablet) 1 Each Tablet, 1 TAB PO Q6H Y for PAIN, #20 TAB Prov:ISABELLELILLIAM C 10/22/16 Famotidine* (Pepcid*) 20 Mg Tablet, 20 MG PO BID for 7 Days, TAB Prov:ISABELLELILLIAM C 10/22/16 Acetaminophen* (Tylophen*) 500 Mg Capsule, 1 CAP PO Q6H Y for PAIN AND OR ELEVATED TEMP, #14 CAP Prov:DUNG JUAREZ MD 02/05/16 Hydrocodone Bit-Acetaminophen* ([place]*) 5-325 Mg Tab, 1 TAB PO Q6 Y for PAIN, # 7 TAB Prov:TIKA HEREDIA 05/25/15 Doxycycline Hyclate* (Doxycycline Hyclate*) 100 Mg Tablet.dr, 100 MG PO BID for 14 Days, TAB Prov:TIKA HEREDIA 05/25/15 Prednisone* (Prednisone*) 20 Mg Tab, 40 MG PO DAILY for 4 Days, TAB Prov:DUNG JUAREZ MD 04/11/15 Ibuprofen* (Motrin*) 600 Mg Tab, 600 MG PO Q6, #14 TAB Prov:DUNG JUAREZ MD 04/11/15 Cephalexin* (Keflex*) 500 Mg Capsule, 500 MG PO QID for 7 Days, CAP Prov:DUNG JUAREZ MD 04/11/15 Allergies Allergies: Coded Allergies: No Known Drug Allergy (Verified Allergy, Unknown, 12/26/14) PMhx/Soc History of Surgery: Yes (Cholecystectomy;Left Tubal cyst removal ) Anesthesia Reaction: No Hx Neurological Disorder: No Hx Respiratory Disorders: No Hx Cardiac Disorders: No Hx Psychiatric Problems: No Hx Miscellaneous Medical Probl: No (iud removal 03/06/16) Hx Alcohol Use: No Hx Substance Use: No Hx Tobacco Use: No Smoking Status: Never smoker Physical Exam Vitals Vital Signs Date Time Temp Pulse Resp B/P Pulse Ox O2 Delivery O2 Flow Rate FiO2 07/19/17 16:54 87 20 98 07/19/17 15:24 99.1 90 18 117/668 98 Physical Exam General: Well-developed, well-nourished, conscious and coherent, in no distress Skin: Warm and dry without rash, good texture and turgor Head: Normocephalic without evidence of trauma Eyes: Sclera and conjunctivae normal; pupils equal, round, and reactive to light; extraocular movements are intact Ears: Canals are patent, right canal erythematous and swollen. Tympanic membranes are clear. Right tragal tenderness Nose/Face: Nasal mucosa erythematous and swollen. Mouth/throat: Mucous membranes are moist. Posterior pharynx clear without erythema or exudates Neck: Supple without meningismus or adenopathy. Carotids are equal. Trachea midline. No bruits or JVD Chest: Normal AP diameter. Good expansion without retractions. Nontender. Lungs are clear to auscultate bilaterally with good tidal volume Heart: Regular rate and rhythm. No murmur, rub, or gallops heard Abdomen: Soft and nontender without masses, guarding, or rebound. Bowel sounds are active. No hepatosplenomegaly Back: Without spinal or CVA tenderness Extremities: Full range of motion. Good strength bilaterally. No clubbing, cyanosis, or edema. Peripheral pulses are intact. Sensation intact Neuro: Alert and oriented 4, GCS 15. Cranial nerves grossly intact. Motor and sensory exams nonfocal. Moves all extremities. Speech clear. Gait normal Results 24 hrs Current Medications Medications (Trade) Dose Ordered Sig/Mariann Route PRN Reason Start Time Stop Time Status Last Admin Dose Admin Albuterol (Proventil 0.083% (Neb)) 2.5 mg ONCE STAT HHN 07/19/17 16:16 07/19/17 16:18 DC 07/19/17 16:51 Procedures/MDM Well-appearing 32-year-old female presented ED with cough 1 month, along with fever. Chest x-ray is negative for acute cardiopulmonary processes. No sign of pneumonia. She is afebrile at this time, lungs are clear to auscultate, I doubt bronchitis. I think her cough is due to postnasal drip, likely due to a viral upper respiratory infection. I do have a slight suspicion for pertussis, pertussis test is sent out. Patient is given albuterol nebulizer treatment in the ED. Patient reports decreased cough after the nebulizer treatment. Patient also reports right ear pain, exam revealed acute otitis externa, likely due to trauma from Q-tips. No sign of otitis media or mastoiditis. Patient appears well, stable for discharge and outpatient management. Medical decision making shared with patient and family. Education provided to patient and family. Patient and family expressed understanding of the plan. Medications on discharge: Saline nasal spray, Flonase, Tessalon Perles, Ventolin , Cortisporin Otic. Follow-up: Primary care provider in 2-3 days or return to ED if worse. Disclaimer: Inadvertent spelling and grammatical errors are likely due to EHR/ dictation software use and do not reflect on the overall quality of patient care. Also, please note that the electronic time recorded on this note does not necessarily reflect the actual time of the patient encounter. Departure Diagnosis: Primary Impression: Cough Additional Impression: Otitis externa Otitis externa type: unspecified type Chronicity: acute Laterality: right Qualified Code: H60.501 - Acute otitis externa of right ear, unspecified type Condition: Stable Patient Instructions: Cough, Chronic, Uncertain Cause, (Adult), External Ear Infection (Adult) Additional Instructions: Call your primary care doctor TOMORROW for an appointment during the next 2-3 days.See the doctor sooner or return here if your condition worsens before your appointment time. DAVID ROBLES NP Jul 19, 2017 16:38
[2017-07-19] MEDS ORDERED: NPH10OT RIGHT EAR (16:42)
--- NOTE | 2017-07-19 16:54 | RADRPT ---
PROCEDURE: Chest x-ray CLINICAL INDICATION: Cough and fever TECHNIQUE: Chest single view COMPARISON: 05/14/2014 FINDINGS: The heart is normal in size. The pulmonary vessels are normal in caliber. The lungs are clear. Th e costophrenic angles are sharp. The visualized bony thorax is unremarkable. IMPRESSION: No acute cardiopulmonary disease. RPTAT: HH .Raoul Norris MD, Date Time Electronically viewed and signed by .Raoul Norris MD, MD on 07/19/2017 16:53 .W/
== END 2017-07-19 17:22 | disposition home or self-care (01) ==
LOC: FTE 15:21
DX: R05 Cough (principal); H60.501 Unspecified acute noninfective otitis externa, right ear
CPT/HCPCS: 71010; 87206; 94664; Z7502; Z7610

== ENCOUNTER 2017-09-06 15:43 | Emergency (ER) | payer OTHER ==
[~2017-09-06] VITALS: Ht 157.5 cm; Wt 99.0 kg
[~2017-09-06 15:43] MED LIST changes: +ALBU18HF INHALATION; +BENZ100C70 PO; +FLUT9.9S NASAL; +NPH10OT RIGHT EAR; +SODI126M NASAL
[2017-09-06 15:48] VITALS: Ht 157.5 cm; Wt 99.0 kg
[2017-09-06] MEDS ORDERED: ACETAMINOPHEN 325 MG TAB PO STA (18:18)
--- NOTE | 2017-09-06 18:22 | ERD ---
ER Documentation Chief Complaint Chief Complaint vag bleeding x 5 days, + LMP 05/21 HPI Otherwise healthy 32-year-old female presents with a chief complaint of vaginal bleeding 1 week. Associated 8/10 pelvic pain bilaterally. Patient's last menstrual period was May 21. test July showed positive. Patient has not seen an [facility] and is not taking any medications. Patient states that the blood is moderate quantity with 3-4 pads per day with associated clots. Denies chills, meningismus, abdominal pain, constipation, diarrhea, dysuria, nausea, vomiting, foul odor or vaginal discharge. Patient has no other complaints and describes no other associated manifestations. ROS All systems reviewed and are negative except as per history of present illness. Medications Home Meds Active Scripts Neomycin/Polymyxin/Hydrocort* (Cortisporin* Otic) 10 Ml Susp, 4 DROP RIGHT EAR QID for 7 Days, EA Prov:DAVID ROBLES NP 07/19/17 Benzonatate* (Tessalon Perle*) 100 Mg Capsule, 100 MG PO Q8H Y for COUGH, #30 CAP Prov:DAVID ROBLES NP 07/19/17 Albuterol Sulfate* (Ventolin HFA*) 18 Gm Hfa.aer.ad, 2 PUFF INHALATION Q4H, #1 INHALER Prov:DAVID ROBLES NP 07/19/17 Fluticasone Propionate (Flonase Allergy Relief) 9.9 Ml [place].susp, 1 SPRAY NASAL DAILY, #1 BOTTLE TO EACH NOSTRIL Prov:DAVID ROBLES NP 07/19/17 Sodium Chloride (Saline Nasal Mist) 126 Ml Mist, 2 SPRAY NASAL Q2H Y for NASAL CONGESTION, #1 BOTTLE Prov:DAVID ROBLES NP 07/19/17 Ondansetron (Ondansetron Odt) 4 Mg Tab.rapdis, 4 MG PO Q6H Y for NAUSEA AND/OR VOMITING, #10 TAB Prov:AYAH HERNANDEZ PA-C 04/22/17 Acetamin/Butalbital/Caffeine* (Fioricet*) [id number] Tab, 1 TAB PO Q6H Y for PAIN, #30 TAB Prov:AYAH HERNANDEZ PA-C 04/22/17 Acetamin/Butalbital/Caffeine* (Fioricet*) [id number] Tab, 1 TAB PO Q6H Y for PAIN, #30 TAB Prov:AYAH HERNANDEZ PA-C 01/25/17 Hydrocodone/Acetaminophen ([place] 5-325 Tablet) 1 Each Tablet, 1 TAB PO Q6H Y for PAIN, #20 TAB Prov:ISABELLEJEROMELILLIAM C 10/22/16 Famotidine* (Pepcid*) 20 Mg Tablet, 20 MG PO BID for 7 Days, TAB Prov:ISABELLELILLIAM C 10/22/16 Acetaminophen* (Tylophen*) 500 Mg Capsule, 1 CAP PO Q6H Y for PAIN AND OR ELEVATED TEMP, #14 CAP Prov:DUNG JUAREZ MD 02/05/16 Hydrocodone Bit-Acetaminophen* ([place]*) 5-325 Mg Tab, 1 TAB PO Q6 Y for PAIN, # 7 TAB Prov:TIKA HEREDIA 05/25/15 Doxycycline Hyclate* (Doxycycline Hyclate*) 100 Mg Tablet.dr, 100 MG PO BID for 14 Days, TAB Prov:TIKA HEREDIA 05/25/15 Prednisone* (Prednisone*) 20 Mg Tab, 40 MG PO DAILY for 4 Days, TAB Prov:DUNG JUAREZ MD 04/11/15 Ibuprofen* (Motrin*) 600 Mg Tab, 600 MG PO Q6, #14 TAB Prov:DUNG JUAREZ MD 04/11/15 Cephalexin* (Keflex*) 500 Mg Capsule, 500 MG PO QID for 7 Days, CAP Prov:DUNG JUAREZ MD 04/11/15 Allergies Allergies: Coded Allergies: No Known Drug Allergy (Verified Allergy, Unknown, 12/26/14) PMhx/Soc History of Surgery: Yes (Cholecystectomy;Left Tubal cyst removal ) Anesthesia Reaction: No Hx Neurological Disorder: No Hx Respiratory Disorders: No Hx Cardiac Disorders: No Hx Psychiatric Problems: No Hx Miscellaneous Medical Probl: No (iud removal 03/06/16) Hx Alcohol Use: No Hx Substance Use: No Hx Tobacco Use: No Physical Exam Vitals Vital Signs Date Time Temp Pulse Resp B/P Pulse Ox O2 Delivery O2 Flow Rate FiO2 09/06/17 15:48 99.0 100 18 124/79 99 Physical Exam Const: Obese 32-year-old female in NAD Head: Atraumatic Eyes: Normal Conjunctiva ENT: Normal External Ears, Nose and Mouth. Neck: Full range of motion..~ No meningismus. Resp: Clear to auscultation bilaterally Cardio: Regular rate and rhythm, no murmurs Abd: Soft, non tender, non distended. Normal bowel sounds Skin: No petechiae or rashes Back: No midline or flank tenderness Ext: No cyanosis, or edema Neur: Awake and alert Psych: Normal Mood and Affect Repro: Mild bilateral pelvic tenderness. No masses palpated. No suprapubic tenderness. Result Diagram: 09/06/171849 Results 24 hrs Laboratory Tests Test 09/06/17 18:50 09/06/17 19:00 White Blood Count 12.910^3/ul Red Blood Count 4.8110^6/ul Hemoglobin 14.5g/dl Hematocrit 41.8% Mean Corpuscular Volume 86.9fl Mean Corpuscular Hemoglobin 30.1pg Mean Corpuscular Hemoglobin Concent 34.7g/dl Red Cell Distribution Width 12.2% Platelet Count 98012^3/UL Mean Platelet Volume 11.9fl Neutrophils % 65.7% Lymphocytes % 24.5% Monocytes % 5.6% Eosinophils % 3.3% Basophils % 0.5% Nucleated Red Blood Cells % 0.0/100WBC Neutrophils # 8.510^3/ul Lymphocytes # 3.210^3/ul Monocytes # 0.710^3/ul Eosinophils # 0.410^3/ul Basophils # 0.110^3/ul Nucleated Red Blood Cells # 0.010^3/ul Beta HCG, Quantitative < 2.4mIU/ml Urine Color YELLOW Urine Clarity CLEAR Urine pH 5.0 Urine Specific [place] 1.021 Urine Ketones NEGATIVEmg/dL Urine Nitrite NEGATIVEmg/dL Urine Bilirubin NEGATIVEmg/dL Urine Urobilinogen NEGATIVEmg/dL Urine Leukocyte Esterase NEGATIVELeu/ul Urine Microscopic RBC 90/HPF Urine Microscopic WBC 0/HPF Urine Hemoglobin 3+mg/dL Urine Glucose NEGATIVEmg/dL Urine Total Protein NEGATIVEmg/dl Current Medications Medications (Trade) Dose Ordered Sig/Mariann Route PRN Reason Start Time Stop Time Status Last Admin Dose Admin Acetaminophen (Tylenol Tab) 650 mg ONCE STAT PO 09/06/17 18:18 09/06/17 18:20 DC 09/06/17 19:18 Procedures/MDM Obese but otherwise healthy 32-year-old female presenting with a chief complaints of vaginal bleeding and bilateral pelvic pain for the past week. Last menstrual period was May 21. Home test positive x1 month ago. Patient has not been followed by [facility]. Beta-hCG today less than 2.4. Labs are remarkable for leukocytosis of 12.9. Urinalysis revealed hematuria. Ultrasound was read by the radiologist given the following impression: Unremarkable pelvic ultrasound. No evidence of intrauterine Normal color Doppler flow to both ovaries At this time I have no suspicion for PID, endometritis, ectopic , acute abdomen, or other SBI. Most likely diagnosis is all illegal menorrhea versus dysmenorrhea versus complete . I recommended that the patient follow-up in 2 days with [facility]. Results have been given to the patient. I have spoke with the patient regarding their condition and future management. They have verbally responded that they understand their status and treatment plan. The patients vitals are stable, and their current condition is appropriate for discharge. The patient will be given discharge instructions with return precautions. Departure Diagnosis: Primary Impression: Vaginal bleeding Additional Impressions: Pelvic pain Irregular menstrual cycle Condition: Stable Additional Instructions: Follow-up with [facility] in 2 days. Return the the emergency department immediately if symptoms worsen or change. If you have any questions regarding medications, ask your pharmacist or us before you leave. If any adverse reactions occur while taking your medications, discontinue the treatment and return to the emergency department immediately. Take your medications as directed, and complete the entire course of treatment. AKVON JOSEPH PA-C Sep 06, 2017 18:22
--- NOTE | 2017-09-06 18:52 | RADRPT ---
PROCEDURE: US Pelvis. CLINICAL INDICATION: Vaginal bleeding TECHNIQUE: Transabdominal and transvaginal pelvic ultrasound are performed. COMPARISON: None. FINDINGS: The uterus is normal in echogenicity and anteverted in orientation. The uterus measures 8.6 x 4.7 x 6.3 cm. No focal fibroids are identified. A normal endometrium is identified measuring 6.5 mm. No IUP is seen.. The cervix is normal in appearance. Both ovaries are identified, and normal in size, shape, and appearance. Small follicles are noted w ithin both ovaries. Normal Doppler flow is noted of both ovaries. The right ovary measures 2.7 x 2.0 x 1.8 cm, and the left ovary measures 2.8 x 1.7 x 2.0 cm There is no free fluid in the pelvis IMPRESSION: Unremarkable pelvic ultrasound. No evidence of intrauterine Normal color Doppler flow to both ovaries RPTAT: .Raoul Norris MD, MD Date Time Electronically viewed and signed by .Raoul Norris MD, on 09/06/2017 18:52 .W/
[2017-09-06 18:58] LABS: BASOPHIL # 0.1 10^3/ul (0.0-0.1); BASOPHILS % 0.5 % (0.0-2.0); EOSINOPHILS # 0.4 10^3/ul (0.0-0.5); EOSINOPHILS % 3.3 % (0.0-7.0); HEMATOCRIT 41.8 % (37.0-47.0); HEMOGLOBIN 14.5 g/dl (12.0-16.0); LYMPHOCYTES # 3.2 10^3/ul (0.8-2.9); LYMPHOCYTES % 24.5 % (15.0-51.0); MEAN CORPUSCULAR HEMOGLOBIN 30.1 pg (29.0-33.0); MEAN CORPUSCULAR HGB CONC 34.7 g/dl (32.0-37.0); MEAN CORPUSCULAR VOLUME 86.9 fl (82.0-101.0); MEAN PLATELET VOLUME 11.9 fl (7.4-10.4); MONOCYTE # 0.7 10^3/ul (0.3-0.9); MONOCYTES % 5.6 % (0.0-11.0); NEUTROPHIL # 8.5 10^3/ul (1.6-7.5); NEUTROPHILS % 65.7 % (39.0-77.0); PLATELET COUNT 242 10^3/UL (140-415); RED BLOOD COUNT 4.81 10^6/ul (4.20-5.40); RED CELL DISTRIBUTION WIDTH 12.2 % (11.5-14.5); WHITE BLOOD COUNT 12.9 10^3/ul (4.8-10.8)
[2017-09-06 19:21] LABS: ADD UMIC YES; UR ASCORBIC ACID NEGATIVE (NEGATIVE); UR BILIRUBIN (Dip) NEGATIVE (NEGATIVE); UR BLOOD (Dip) 3+ mg/dL (NEGATIVE); UR CLARITY CLEAR (CLEAR); UR COLOR YELLOW (YELLOW); UR GLUCOSE (Dip) NEGATIVE (NEGATIVE); UR KETONES (Dip) NEGATIVE (NEGATIVE); UR LEUKOCYTE ESTERASE (Dip) NEGATIVE Leu/ul (NEGATIVE); UR NITRITE (Dip) NEGATIVE (NEGATIVE); UR RBC 90 /HPF (0-5); UR SPECIFIC GRAVITY (Dip) 1.021 (1.003-1.030); UR TOTAL PROTEIN (Dip) NEGATIVE (NEGATIVE); UR UROBILINOGEN (Dip) NEGATIVE (NEGATIVE)
[2017-09-06 20:04] VITALS: BP 118/71; PULSE 85; RESP 18; TEMP 98.1
== END 2017-09-06 20:06 | disposition home or self-care (01) ==
LOC: FTE 15:43
DX: O20.9 Hemorrhage in early pregnancy, unspecified (principal); O26.899 Other specified pregnancy related conditions, unspecified trimester; R10.2 Pelvic and perineal pain; Z3A.00 Weeks of gestation of pregnancy not specified
CPT/HCPCS: 76801; 76817; 81001; 84702; 85025; 86900; 86901; Z7502; Z7610

== ENCOUNTER 2017-09-26 10:57 | Emergency (ER) | END 2017-09-26 14:15 | disposition home or self-care (01) ==

== ENCOUNTER 2017-11-26 08:44 | Emergency (ER) | END 2017-11-26 14:13 | disposition home or self-care (01) ==

== ENCOUNTER 2018-03-14 11:59 | Emergency (ER) | END 2018-03-14 15:10 | disposition home or self-care (01) ==

== ENCOUNTER 2018-06-27 21:04 | Emergency (ER) | END 2018-06-28 00:42 | disposition home or self-care (01) ==

== ENCOUNTER 2018-09-08 18:14 | Emergency (ER) | END 2018-09-08 21:30 | disposition home or self-care (01) ==

== ENCOUNTER 2018-09-15 18:24 | Emergency (ER) | END 2018-09-15 21:17 | disposition home or self-care (01) ==

== ENCOUNTER 2019-04-10 11:40 | Emergency (ER) | payer SELFPAY ==
[~2019-04-10] VITALS: Ht 160 cm; Wt 88.5 kg
[~2019-04-10 11:40] MED LIST changes: -ALBU18HF INHALATION; +ALBU8.5H8 INH; +AMOX1TAB9 PO; +AMOX500C2 PO; +AZIT250T PO; +BENZ-6 PO; -BENZ100C70 PO; -CEPH-443 PO; -DOXY100T20 PO; -FAMO-96 PO; -FIORICET PO; -FLUT9.9S NASAL; -HYDR-3498 PO; -HYDR-906 PO; -NPH10OT RIGHT EAR; -ONDA4TAB14 PO; -PRED20TA PO; -SODI126M NASAL
[2019-04-10 11:42] VITALS: BP 130/77; PULSE 79; RESP 17; Ht 160 cm; Wt 88.5 kg
[2019-04-10] MEDS ORDERED: DICYCLOMINE 20 MG INJ IM ONE (13:00)
[2019-04-10] MEDS ORDERED: DICYCLOMINE 10 MG CAP PO ONE (13:00)
[2019-04-10] MEDS ORDERED: LIDOCAINE/MYLANTA 40 ML BTL PO ONE (13:00)
[2019-04-10] MEDS ORDERED: BELLADONNA/PHENOBARBITAL TAB PO ONE (13:00)
[2019-04-10] MEDS ORDERED: FAMO-96 PO (14:15)
[2019-04-10] MEDS ORDERED: POLY17PO6 PO (14:15)
[2019-04-10] MEDS ORDERED: ONDA4TAB14 PO (14:15)
--- NOTE | 2019-04-10 16:18 | ERD ---
ER Documentation Chief Complaint Chief Complaint ABD PAIN X3 DAYS, NAUSEA, NO VOMITING HPI History of Present Illness: 33-year-old female who denies past medical history coming in today with complaint of epigastric abdominal pain is been present for 3 days. Patient reports a warm sensation. Patient reports nausea, no vomiting. Patient denies diarrhea. Patient reports increased difficulty with moving bowels. Patient denies any other associated symptoms. Denies fever, chills. Surgical history of cholecystectomy. At home pharmacological/nonpharmacological treatment for symptoms: Denies Denies social concerns; Denies recent foreign travel ROS All systems reviewed and are negative except as per history of present illness. Medications Home Meds Active Scripts Polyethylene Glycol* (Miralax*) 17 Gm Powd.pack, 17 GM PO DAILY for CONSTIPATION, #7 Prov:PORTER LENZ NP 04/10/19 Ondansetron (Ondansetron Odt) 4 Mg Tab.rapdis, 4 MG PO Q6H PRN for NAUSEA AND/OR VOMITING, #15 TAB Prov:PORTER LENZ NP 04/10/19 Famotidine* (Pepcid*) 20 Mg Tablet, 40 MG PO BID for ABDOMINAL BURNING for 4 Days, #30 TAB Prov:PORTER LENZ NP 04/10/19 Acetaminophen* (Tylophen*) 500 Mg Capsule, 1 CAP PO Q6H PRN for PAIN AND OR ELEVATED TEMP, #20 CAP Prov:PASILAJOHANNA OROSCO 09/15/18 Benzonatate* (Tessalon Perle*) 100 Mg Capsule, 100 MG PO Q8H PRN for COUGH, #15 CAP Prov:PASILAJOHANNA OROSCO F 09/15/18 Albuterol Sulfate* (Proair HFA*) 8.5 Gm Hfa.aer.ad, 2 PUFF INH Q4H PRN for WHEEZING AND SOB, #1 INHALER Prov:JOHANNA IRIZARRY 09/15/18 Azithromycin* (Zithromax*) 250 Mg Tablet, 250 MG PO .ZPACK DIRECTED, #6 TAB TAKE 500 MG (2 TABS) THE FIRST DAY THEN 250 MG (1 TAB) DAYS 2-5 Prov:PASILAJOHANNA OROSCO 09/15/18 Amoxicillin/Potassium Clav (Amox-Clav 500-125 mg Tablet) 500-125 mg Tab, 1 TAB PO BID for 7 Days, TAB Prov:JOHANNA IRIZARRY 09/15/18 Acetaminophen* (Tylophen*) 500 Mg Capsule, 1 CAP PO Q6H PRN for PAIN AND OR ELEVATED TEMP, #20 CAP Prov:CHIKIS EDWARDS PA-C 09/08/18 Ibuprofen* (Motrin*) 600 Mg Tab, 600 MG PO Q6, #30 TAB Prov:CHIKIS EDWARDS PA-C 09/08/18 Amoxicillin* (Amoxicillin*) 500 Mg Cap, 500 MG PO TID for 10 Days, CAP Prov:CHIKIS EDWARDS PA-C 09/08/18 Allergies Allergies: Coded Allergies: No Known Drug Allergy (Verified Allergy, Unknown, 09/26/17) PMhx/Soc History of Surgery: Yes (cholecystectomy, BACK SURGERY) Anesthesia Reaction: No Hx Neurological Disorder: No Hx Respiratory Disorders: No Hx Cardiac Disorders: No Hx Psychiatric Problems: No Hx Miscellaneous Medical Probl: Yes (Anxiety) Hx Alcohol Use: No Hx Substance Use: No Hx Tobacco Use: No Smoking Status: Never smoker FmHx Family History: diabetes Physical Exam Vitals Vital Signs Date Temp Pulse Resp B/P (MAP) Pulse Ox O2 O2 Flow FiO2 Time Delivery Rate 04/10/19 98.3 79 17 130/77 99 11:42 (94) Physical Exam Const: No acute distress, afebrile Head: Atraumatic Eyes: Normal Conjunctiva ENT: Normal External Ears, Nose and Mouth. Neck: Full range of motion. No meningismus. Resp: Clear to auscultation bilaterally Cardio: Regular rate and rhythm, no murmurs Abd: Soft, epigastric tenderness, non distended. Normal bowel sounds. No guarding, no masses, no rigidity. Obese. Skin: No petechiae or rashes Back: No midline or flank tenderness Ext: No cyanosis, or edema Neur: Awake and alert x3, speaking in clear sentences, no focal deficits or facial asymmetry Psych: Normal Mood and Affect Results 24 hrs Laboratory Tests Test 04/10/19 13:00 POC Beta HCG, Qualitative NEGATIVE Current Medications Medications Dose Sig/Mariann Start Time Status Last (Trade) Ordered Route PRN Stop Time Admin Dose Reason Admin Dicyclomine 10 mg ONCE ONCE 04/10/19 DC HCl IM 13:00 (Bentyl) 04/10/19 13:04 Belladonna/ 1 tab ONCE ONCE 04/10/19 DC 04/10/19 Phenobarbital PO 13:00 13:25 () 04/10/19 13:04 40 ml ONCE ONCE 04/10/19 DC 04/10/19 Miscellaneous PO 13:00 13:25 Medication 04/10/19 13:04 (Gi Cocktail (2)) Dicyclomine 10 mg ONCE ONCE 04/10/19 DC 04/10/19 HCl PO 13:00 13:25 (Bentyl) 04/10/19 13:04 Procedures/MDM ED COURSE: ED course includes a thorough examination and history. The patient was stable throughout ED course. I kept the patient and/or family informed of laboratory and diagnostic imaging results throughout the ED course. LABS: Urine negative MEDICATIONS GIVEN IN ER: GI cocktail, , Bentyl patient tolerated medication well with no adverse reactions. Patient reported improvement in pain. DIAGNOSTIC IMAGING: Read by radiologist. IMPRESSION: Fecal filled colon. .Mariano Lenz MD, MD Date Time Electronically viewed and signed by .Mariano Lenz MD, MD on 04/10/2019 13:55 PROCEDURES: None. MEDICAL DECISION MAKING: Low suspicion for life-threatening medical emergency. Low suspicion for acute abdominal emergency. Including bowel infection. Low suspicion for infectious process. Otherwise healthy patient presenting with constellation of symptoms likely representing abdominal pain likely related to constipation and acid reflux-like symptoms as characterized by history, physical exam findings, radiologic findings, lab findings. Patient reassessment @ 1413: Results discussed. Patient reports nausea no lauryn vicki present. Pain decreased.. Patient hemodynamically stable. No respiratory distress, otherwise relatively well appearing and nontoxic. Disposition given. Patient educated on diagnoses, prescriptions, follow-up care, return precautions. Strict return precautions given for worsening condition; questions answered discharge. Patient verbalizes understanding of discharge instructions. PRESCRIPTIONS FOR HOME: MiraLAX, Pepcid, Zofran DISPOSITION: DISCHARGE At this time, patient is stable for discharge and outpatient management. I have instructed the patient to follow-up with his/her primary care physician in 1-2 days. I have discussed with the patient the possibility of needing to see a specialist for further workup and imaging studies if symptoms persist. I have instructed the patient to promptly return to the ER for any new or worsening symptoms including increased pain, fever, nausea, vomiting, weakness or LOC. The patient and/or family expressed understanding of and agreement with this plan. All questions were answered. Home care instructions were provided. DISCLAIMER: Inadvertent spelling and grammatical errors are likely due to EHR/dictation software use and do not reflect on the overall quality of patient care. Also, please note that the electronic time recorded on this note does not necessarily reflect the actual time of the patient encounter. Departure Diagnosis: Primary Impression: Abdominal pain Condition: Stable Patient Instructions: Abdominal Pain Referrals: [facility] YOU HAVE RECEIVED A MEDICAL SCREENING EXAM AND THE RESULTS INDICATE THAT YOU DO NOT HAVE A CONDITION THAT REQUIRES URGENT TREATMENT IN THE EMERGENCY DEPARTMENT. FURTHER EVALUATION AND TREATMENT OF YOUR CONDITION CAN WAIT UNTIL YOU ARE SEEN IN YOUR DOCTORS OFFICE WITHIN THE NEXT 1-2 DAYS. IT IS YOUR RESPONSIBILITY TO MAKE AN APPOINTMENT FOR FOLOW-UP CARE. IF YOU HAVE A PRIMARY DOCTOR --you should call your primary doctor and schedule an appointment IF YOU DO NOT HAVE A PRIMARY DOCTOR YOU CAN CALL OUR PHYSICIAN REFERRAL HOTLINE AT IF YOU CAN NOT AFFORD TO SEE A PHYSICIAN YOU CAN CHOSE FROM THE FOLLOWING [facility] [address] [facility]. [facility] [address] [facility] [facility] [address] [facility] [facility] [address] [facility] [facility] [address] [facility]. [facility]. [address] [facility]. [facility] YOU HAVE RECEIVED A MEDICAL SCREENING EXAM AND THE RESULTS INDICATE THAT YOU DO NOT HAVE A CONDITION THAT REQUIRES URGENT TREATMENT IN THE EMERGENCY DEPARTMENT. FURTHER EVALUATION AND TREATMENT OF YOUR CONDITION CAN WAIT UNTIL YOU ARE SEEN IN YOUR DOCTORS OFFICE WITHIN THE NEXT 1-2 DAYS. IT IS YOUR RESPONSIBILITY TO MAKE AN APPOINTMENT FOR FOLOW-UP CARE. IF YOU HAVE A PRIMARY DOCTOR --you should call your primary doctor and schedule and appointment IF YOU DO NOT HAVE A PRIMARY DOCTOR YOU CAN CALL OUR PHYSICIAN REFERRAL HOTLINE AT . IF YOU CAN NOT AFFORD TO SEE A PHYSICIAN YOU CAN CHOSE FROM THE FOLLOWING [facility] INSTITUTIONS: [facility] [address] [place] [address] [facility] [address] [place] [address] [facility] [address] [place] [address] Additional Instructions: Thank you very much for allowing us to participate in your care. Your health and safety is our top priority at [facility]. It is important to read all discharge instructions and education provided in your discharge packet. Call your primary care doctor TOMORROW for an appointment during the next 2-4 days and bring all the information and medications prescribed. Have prescriptions filled and follow precisely the directions on the label. -Famotidine is a medication that will help with acid reflux; take this medication as prescribed for the next 1 to 2 weeks with lunch and dinner. Report to your primary care doctor if the nausea is no longer present with this medication. If so, it is highly likely that your acid reflux is causing your nausea. -Zofran is a medication for nausea/vomitting; take this medication as needed for nausea/vomiting/decreased appetite. If the symptoms get worse and your provider is unavailable, return to the Emergency Department immediately. PORTER LENZ NP Apr 10, 2019 16:17
== END 2019-04-10 14:23 | disposition home or self-care (01) ==
LOC: FTE 11:40
DX: R10.13 Epigastric pain (principal); R11.0 Nausea
CPT/HCPCS: 74019; 81025; 99283; J0500